=== PATIENT | female | born 1960 | race Caucasian/White ===

== ENCOUNTER 2016-10-03 18:43 | Inpatient (IN) | payer OTHER ==
[2016-10-03] MEDS ORDERED: Sodium Chloride 0.9% 1,000 ML IV ONE (19:44)
[2016-10-03 20:08] LABS: RBC URINE < 1 /hpf (0-3); URINE BILIRUBIN NEGATIVE (NEGATIVE); URINE BLOOD NEGATIVE (NEGATIVE); URINE COLOR Yellow (YELLOW); URINE GLUCOSE (UA) NORMAL (Normal); URINE KETONE NEGATIVE (NEGATIVE); URINE LEUKOCYTE ESTERASE NEG Leu/uL (Negative); URINE PROTEIN NEGATIVE (NEGATIVE); URINE UROBILINOGEN NORMAL mg/dL (0.2-1.0); WBC URINE 1 /hpf (0-5)
[2016-10-03 20:11] LABS: BASO % 0.3 % (0.0-2.0); EOS # 0.4 K/uL (0.0-0.7); EOS % 2.5 % (0.0-4.0); HEMATOCRIT 34.9 % (34.0-47.0); LYMPH # 2.4 K/uL (1.0-4.3); MEAN CORPUSCULAR HEMOGLOBIN 28.9 pg (27.0-31.0); MEAN CORPUSCULAR HGB CONC 32.4 g/dL (33.0-37.0); MONO # 1.3 K/uL (0.0-0.8); MONO % 8.4 % (0.0-10.0); RED CELL DISTRIBUTION WIDTH 13.8 % (11.5-14.5)
[2016-10-03] MEDS ORDERED: Morphine 4 MG/ML VIAL ONE ×2 (20:11→23:04)
[2016-10-03] MEDS ORDERED: Sodium Chloride 0.9% 1,000 ML ONE (20:11)
[2016-10-03 20:12] LABS: WHITE BLOOD COUNT 15.1 K/uL (4.8-10.8)
[2016-10-03] MEDS ORDERED: Iodixanol 320 MG/ML 100 ML BOTTLE IV ONE (20:17)
[2016-10-03 20:20] LABS: CHLORIDE 98 mmol/L (98-107); SODIUM 137 mmol/L (132-148)
[2016-10-03 20:22] LABS: ALB/GLOB RATIO 1.4 (1.0-2.1); AST/SGOT 34 U/L (14-36); BILIRUBIN,TOTAL 0.5 mg/dL (0.2-1.3); CARBON DIOXIDE 28 mmol/L (22-30); GFR AFRICAN-AMERICAN > 60; TOTAL PROTEIN 6.8 g/dL (6.3-8.3)
[2016-10-03 20:23] LABS: ALKALINE PHOSPHATASE 73 U/L (38-126); ALT/SGPT 34 U/L (9-52); BLOOD UREA NITROGEN 16 mg/dL (7-17); GLUCOSE,RANDOM 103 mg/dL (65-105)
--- NOTE | 2016-10-03 20:52 | C.PDOC ---
History Of Present Illness 56 year old female presents to the ED with complaints of sharp intermittent LLQ pain radiating to her lower back since yesterday. Patient states she has associated nausea and feels the symptoms are similar to a previous episode of diverticulitis (December 2015). Patient denies fever, vomiting/diarrhea, dysuria/ hematuria, chest pain, SOB. Time Seen by Provider: 10/03/16 19:08 Chief Complaint (Nursing): Abdominal Pain History Per: Patient History/Exam Limitations: no limitations Onset/Duration Of Symptoms: Days, Intermittent Episodes Current Symptoms Are (Timing): Still Present Severity: Mild Location Of Pain/Discomfort: LLQ Radiation Of Pain To:: Back Quality Of Discomfort: Sharp Associated Symptoms: Nausea. denies: Fever, Chills, Vomiting, Diarrhea, Chest Pain, Urinary Symptoms Abnormal Vaginal Bleeding: No Past Medical History Reviewed: Historical Data, Nursing Documentation, Vital Signs Vital Signs: Last Vital Signs Temp 98.9 F 10/05/16 07:48 Pulse 62 10/05/16 07:48 Resp 20 10/05/16 07:48 BP 125/78 10/05/16 07:48 Pulse Ox 96 10/05/16 07:48 - Medical History PMH: Diverticulitis Family History: States: No Known Family Hx - Social History Hx Alcohol Use: No Hx Substance Use: No - Immunization History Hx Influenza Vaccination: No Review Of Systems Except As Marked, All Systems Reviewed And Found Negative. Constitutional: Negative for: Fever, Chills Gastrointestinal: Positive for: Nausea, Abdominal Pain (+LLQ pain). Negative for: Vomiting, Diarrhea Genitourinary: Negative for: Dysuria, Hematuria Physical Exam - Physical Exam Appears: Well, Non-toxic, Other (in mild pain ) Skin: Normal Color, Warm, Dry, No Rash Head: Normacephalic Eye(s): bilateral: Normal Inspection Oral Mucosa: Moist Cardiovascular: Rhythm Regular Respiratory: Normal Breath Sounds, No Accessory Muscle Use, No Rales, No Rhonchi , No Wheezing Gastrointestinal/Abdominal: Bowel Sounds, Soft, Tenderness (+LLQ tenderness to palpation), No Distention, Guarding, No Rebound, No Other ((-) McBurney's, (-) Aquino's ) Back: No CVA Tenderness Extremity: Normal ROM, No Deformity Neurological/Psych: Oriented x3 ED Course And Treatment - Laboratory Results Result Diagrams: 10/05/16 07:15 10/05/16 07:15 O2 Sat by Pulse Oximetry: 96 (Room air) Pulse Ox Interpretation: Normal - CT Scan/US ct abd/pelvis Other Rad Studies (CT/US): Read By Radiologist, Radiology Report Reviewed CT/US Interpretation: Accession No. : [id number]. Patient Name / ID : DARWIN DAVILA / [id number]. Exam Date : 10/03/2016 21:47:11 ( Approved ). Study Comment : Sex / Age : F / 56Y. Creator : Dotty Mack MD. Dictator : White [employer]ros[employer] Proofer : Brick Carrier : Dotty Mack MD. Approver2 : Report Date : 10/03/2016 22:34:00. My Comment : . [facility] Division of Radiology. [address] [place] [address]. Tel. no. . . . Patient Name: LOLA GRANADOS . Pt. Address: [address] [place] [address] Rec #: [id number]. [place] [address]: Adenike Paulson DO Pt Order Location: [facility] : 1960 Female Age: 56 Order #: [id number]. Reason for exam: LLQ PAIN, R/O DIVERTICULITIS. . . . . . CT Scan. . . ABD PELVIS IV CONTRAST ONLY Exam Date: 10/03/16. . This imaging exam was performed at [facility], [place]. . . EXAM: CT Abdomen and Pelvis With Intravenous Contrast. . CLINICAL HISTORY: 56 years old, female; Pain; Abdominal pain; Flank; Left lower quadrant (llq);. Additional info: Llq pain, R/O diverticulitis. . TECHNIQUE: Axial computed tomography images of the abdomen and pelvis with intravenous. contrast. This CT exam was performed using one or more of the following dose. reduction techniques: automated exposure control, adjustment of the mA and/or. kV according to patient size, and/or use of iterative reconstruction technique. Coronal and sagittal reformatted images were created and reviewed. . CONTRAST: 100 mL of VISIPAQUE 320 administered intravenously. . EXAM DATE/ TIME: 10/03/2016 7:53 PM. . COMPARISON: Prior CT abdomen and pelvis of 2015. . FINDINGS: LIMITATIONS: Exam is somewhat limited by mild streak/ motion artifact. LOWER THORAX: No infiltrate seen in the lung bases. . ABDOMEN: LIVER: No acute abnormality of the liver identified. GALLBLADDER AND BILE DUCTS: No CT evidence of acute cholecystitis. No. evidence of significant biliary ductal dilatation. PANCREAS: No CT evidence of acute pancreatitis. SPLEEN: No acute abnormality of the spleen identified. ADRENALS : No acute abnormality of the adrenal glands identified. KIDNEYS AND URETERS: No acute abnormality of the kidneys identified. No. evidence of significant hydrouereteronephrosis. STOMACH AND BOWEL: Moderate focal fat stranding and infiltration, consistent. with inflammatory change, is seen in the fat adjacent to the distal descending. colon. Marked segmental wall thickening of the colon is also noted in this. same area. There is a small amount of nearby fluid in the left retroperitoneal. space. The inflammatory changes surround a colonic diverticulum. Findings. are most compatible with acute diverticulitis. No evidence of significant. focal fluid collection or abscess. No definite nearby extraluminal air seen to. suggest perforation. Extensive colonic diverticulosis is noted. Retained. stool noted throughout the colon. Focal wall thickening of the stomach is. seen, along the greater curvature. This may have been present on the prior CT. also. No evidence of gastric obstruction or diffuse gastric wall thickening. No evidence of large bowel obstruction. No evidence of small bowel. obstruction. No acute abnormality of the duodenum identified. APPENDIX: Appendix is seen, and is within normal limits in appearance. . PELVIS: BLADDER: No acute abnormality of the bladder identified. REPRODUCTIVE: No acute abnormality of the uterus identified. No evidence of. large adnexal masses. . ABDOMEN and PELVIS: INTRAPERITONEAL SPACE: No evidence of free air or significant free fluid. BONES /JOINTS: No acute fractures or other acute bony abnormality noted. SOFT TISSUES: No acute abnormality of the visualized soft tissues is seen. VASCULATURE: No evidence of abdominal aortic aneurysm. No evidence of. periaortic hemorrhage. LYMPH NODES: No evidence of diffuse lymphadenopathy. . IMPRESSION: - Findings compatible with acute diverticulitis of the distal descending colon. No evidence of abscess formation or perforation. - Focal wall thickening of the stomach, along the greater curvature. While. this could be secondary to focal gastritis, consider further non-emergent. workup to exclude neoplastic gastric wall thickening, in a patient of this age. - See above for remaining findings. . Dictated By: Dotty Mack MD. Dictated Date/Time: 10/03/162233. Signed By: Dotty Mack MD. Date Signed: 2233. Transcribed By: MEDREC. Transcribe Date/Time: 10/03/162233. RMMP02/ MT Progress Note: Blood work, Urinalysis, CT ABD & Pelvis w/contrast ordered and reviewed. Patient given IV NS bolus, IV Morphine, IV Zofran. CT scan shows acute diverticulitis without abscess/perf. IV Ciprofloxacin, IV flagyl ordered. Reevaluation Time: 22:35 Reassessment Condition: Improved (Patient continues to have significant pain and some gaurding on physical exam. Required multiple rounds of IV morphine. Will admit to hospital.) - Physician Consult Information Physician Contacted: Minh Steele Outcome Of Conversation: Discussed patient with PMD, he agrees with admission for acute diverticulitis. Wound like Dr. Haley for GI - consult entered. Critical Care Time - Critical Care Note Total Time (in mins): 40 Documented critical care: time excludes all time spent performing seperately billable procedures. Disposition - Disposition Disposition: HOSPITALIZED Disposition Time: 22:53 Condition: STABLE - Clinical Impression Clinical Impression: Acute diverticulitis - Scribe Statement The provider has reviewed the documentation as recorded by the Scribe Amanda Corona. Provider Attestation: All medical record entries made by the Scribe were at my direction and personally dictated by me. I have reviewed the chart and agree that the record accurately reflects my personal performance of the history, physical exam, medical decision making, and the department course for this patient. I have also personally directed, reviewed, and agree with the discharge instructions and disposition. Decision To Admit - Pt Status Changed To: Hospital Disposition Of: Inpatient - Admit Certification Admit to Inpatient:: After my assessment, the patient will require hospitalization for at least two midnights. This is because of the severity of symptoms shown, intensity of services needed, and/or the medical risk in this patient being treated as an outpatient. - InPatient: Physician Admission Certification:: see notes - . Bed Request Type: Regular Admitting Physician: Minh Steele Patient Diagnosis: Acute diverticulitis
--- NOTE | 2016-10-03 22:35 | CT ---
EXAM: CT Abdomen and Pelvis With Intravenous Contrast CLINICAL HISTORY: 56 years old, female; Pain; Abdominal pain; Flank; Left lower quadrant (llq); Additional info: Llq pain, R/O diverticulitis TECHNIQUE: Axial computed tomography images of the abdomen and pelvis with intravenous contrast. This CT exam was performed using one or more of the following dose reduction techniques: automated exposure control, adjustment of the mA and/or kV according to patient size, and/or use of iterative reconstruction technique. Coronal and sagittal reformatted images were created and reviewed. CONTRAST: 100 mL of VISIPAQUE 320 administered intravenously. EXAM DATE/TIME: 10/03/2016 7:53 PM COMPARISON: Prior CT abdomen and pelvis of 12/25/2015 FINDINGS: LIMITATIONS: Exam is somewhat limited by mild streak/motion artifact. LOWER THORAX: No infiltrate seen in the lung bases. ABDOMEN: LIVER: No acute abnormality of the liver identified. GALLBLADDER AND BILE DUCTS: No CT evidence of acute cholecystitis. No evidence of significant biliary ductal dilatation. PANCREAS: No CT evidence of acute pancreatitis. SPLEEN: No acute abnormality of the spleen identified. ADRENALS: No acute abnormality of the adrenal glands identified. KIDNEYS AND URETERS: No acute abnormality of the kidneys identified. No evidence of significant hydrouereteronephrosis. STOMACH AND BOWEL: Moderate focal fat stranding and infiltration, consistent with inflammatory change, is seen in the fat adjacent to the distal descending colon. Marked segmental wall thickening of the colon is also noted in this same area. There is a small amount of nearby fluid in the left retroperitoneal space. The inflammatory changes surround a colonic diverticulum. Findings are most compatible with acute diverticulitis. No evidence of significant focal fluid collection or abscess. No definite nearby extraluminal air seen to suggest perforation. Extensive colonic diverticulosis is noted. Retained stool noted throughout the colon. Focal wall thickening of the stomach is seen, along the greater curvature. This may have been present on the prior CT also. No evidence of gastric obstruction or diffuse gastric wall thickening. No evidence of large bowel obstruction. No evidence of small bowel obstruction. No acute abnormality of the duodenum identified. APPENDIX: Appendix is seen, and is within normal limits in appearance. PELVIS: BLADDER: No acute abnormality of the bladder identified. REPRODUCTIVE: No acute abnormality of the uterus identified. No evidence of large adnexal masses. ABDOMEN and PELVIS: INTRAPERITONEAL SPACE: No evidence of free air or significant free fluid. BONES/JOINTS: No acute fractures or other acute bony abnormality noted. SOFT TISSUES: No acute abnormality of the visualized soft tissues is seen. VASCULATURE: No evidence of abdominal aortic aneurysm. No evidence of periaortic hemorrhage. LYMPH NODES: No evidence of diffuse lymphadenopathy. IMPRESSION: - Findings compatible with acute diverticulitis of the distal descending colon. No evidence of abscess formation or perforation. - Focal wall thickening of the stomach, along the greater curvature. While this could be secondary to focal gastritis, consider further non-emergent workup to exclude neoplastic gastric wall thickening, in a patient of this age. - See above for remaining findings.
[2016-10-03] MEDS ORDERED: Ciprofloxacin 400mg/200ml D5W 200 ML IV STA (22:41)
[2016-10-03] MEDS ORDERED: metroNIDAZOLE IV 500 mg/100 ml 100 ML ONE (23:04)
[2016-10-03] MEDS ORDERED: Ciprofloxacin 400mg/200ml D5W 200 ML IVPB ONE (23:04)
[2016-10-03] MEDS: metroNIDAZOLE IV 500 mg/100 ml 100 ML IV SCH (23:16)
[2016-10-04] MEDS: Sodium Chloride 0.45% 1,000 ML IV SCH ×2 (05:50→22:47)
[2016-10-04 07:18] LABS: HEMATOCRIT 32.2 % (34.0-47.0); MEAN CELL VOLUME 88.9 fL (81.0-99.0); MEAN CORPUSCULAR HGB CONC 32.6 g/dL (33.0-37.0); MEAN PLATELET VOLUME 7.6 fL (7.2-11.7); WHITE BLOOD COUNT 14.2 K/uL (4.8-10.8)
[2016-10-04 07:26] LABS: CHLORIDE 99 mmol/L (98-107); SODIUM 136 mmol/L (132-148)
[2016-10-04 07:27] LABS: POTASSIUM 4.1 mmol/L (3.6-5.2)
[2016-10-04 07:29] LABS: ALB/GLOB RATIO 1.3 (1.0-2.1); ALKALINE PHOSPHATASE 72 U/L (38-126); AST/SGOT 23 U/L (14-36); BILIRUBIN,TOTAL 0.9 mg/dL (0.2-1.3); BLOOD UREA NITROGEN 13 mg/dL (7-17); CARBON DIOXIDE 25 mmol/L (22-30); GFR AFRICAN-AMERICAN > 60; GLUCOSE,RANDOM 102 mg/dL (65-105); TOTAL PROTEIN 6.2 g/dL (6.3-8.3)
[2016-10-04 07:30] LABS: ALT/SGPT 29 U/L (9-52); CALCIUM 7.9 mg/dl (8.6-10.4)
--- NOTE | 2016-10-04 07:57 | HP ---
I was called to the Emergency Room last night where she came in with left lower quadrant pain. It wa s very sharp. It came on suddenly and she was not feeling well, also some nauseousness. No vomiting , no diarrhea, no blood, no shortness of breath, no chest pain. She has a history of diverticulitis in the past, but she has left lower quadrant pain. REVIEW OF SYSTEMS: No headaches, no dizziness, no blurred vision, no hearing or vision changes, no s ore throat, no neck pain. No chest pain or palpitations. No shortness of breath, no coughing, no mu cus. There is abdominal pain with nauseousness, left lower quadrant. It is sharp, came on suddenly. It comes and goes. Extremities have no problems. She can walk, move all extremities fine. There is left lower quadrant pain. FAMILY HISTORY: There is hypertension in the family. ALLERGIES: She has no known drug allergies. SOCIAL HISTORY: No smoking, occasional alcohol, no drugs. PHYSICAL EXAMINATION: VITAL SIGNS: She has a 98.2 temp, 79 pulse, 18 respiratory rate, 134/78 blood pressure, 96% O2 sat o n room air. HEENT: Head is atraumatic, normocephalic. Extraocular muscles are intact. Pupils equal, reactive t o light. Throat is moist. NECK: Supple. HEART: Regular rate. LUNGS: Have decreased breath sounds, but clear to auscultation. No wheezes, rhonchi or rales. ABDOMEN: Tender left lower quadrant, questionable discomfort. No guarding, no rebound, no CVA tende rness. EXTREMITIES: No edema. She can move all 4 extremities. NEUROLOGIC: Alert and oriented x 3. Normal speech. Normal concentration. LYMPHATICS: Midline thyroid, nonpalpable appreciative lymphadenopathy. LABORATORY TESTS: Urine is clear, is negative. She has a 137 sodium, potassium is 4, BUN 16, creatinine 1.1, GFR is 52, sugar is 103, calcium is 8, total bili is 0.5, AST is 34, ALT is 34, a lk phos 73, total protein 6.8, albumin is 3.9, lipase is 64. White count is elevated at 15.9, hemogl obin 11.3, hematocrit 34.9, platelets are 264. REPORTS: She had a CAT scan of the abdomen and pelvis in the Emergency Room and it showed findings c ompatible with acute diverticulitis of the distal descending colon. No abscess. There is focal wall thickening of her stomach along the greater curvature. It could represent focal gastritis. Conside r further emergent workup, possible neoplasm. I called in gastroenterology, Dr. Haley. I put her on IV fluids, IV Cipro, IV Flagyl. I am going to check her labs this morning. She is n.p.o. She is on morphine for the pain. We will see what GI h as to say. She is here for acute diverticulitis, severe abdominal pain. Hopefully, she will do very well. Minh Steele DO cc: [id number] TT: 10/04/2016 07:57:08 en
--- NOTE | 2016-10-04 08:45 | CP.PCM.CON ---
<Pavel Garcia - Last Filed: 10/04/16 08:50> History of Present Illness - History of Present Illness History of Present Illness: PGY4 GI Fellow Consult Note Patient is a 56yo female with PMHx significant for two episodes of acute diverticulitis who presented to the ED with 3 days of abdominal pain. Pain began suddenly on Monday night in the LLQ and was initially pinching in nature. In the following days pain progressively became more and more severe prompting her to come to the ED for further evaluation. She did not take any medications at home to relieve her symptoms and states movement and eating seemed to make symptoms worse. Admits to two episodes of acute diverticulitis previously in January of 2015 and 2015 and admitted that this felt very similar. She denied any fever, chills but had developed nausea and vomiting. She has suffered with constipation for most of her adult life and has not passed stool in 3-4 days. Admits to passing flatus. Denies any sick contacts, recent antibiotic use or travel. PMHx: See HPI PSHx: Denies FHx: Mother - CAD Social: Former smoker - 2ppd, quit ~10 years ago; denies EtOH or illicit drug use Endo: No prior endoscopic evaluation Review of Systems - Constitutional Constitutional: absent: Anorexia, Chills, Malaise - EENT Eyes: absent: Change in Vision Nose/Mouth/Throat: absent: Sore Throat - Cardiovascular Cardiovascular: absent: Chest Pain, Dyspnea, Edema - Respiratory Respiratory: absent: Cough, Dyspnea, Excessive Mucous Production - Gastrointestinal Gastrointestinal: Abdominal Pain, Constipation, Cramping, Nausea, Vomiting. absent: Diarrhea, Dyspepsia, Dysphagia, Hematemesis, Hematochezia, Loose Stools , Melena - Genitourinary Genitourinary: absent: Dysuria, Urinary Frequency, Urinary Urgency - Musculoskeletal Musculoskeletal: absent: Back Pain, Neck Pain - Integumentary Integumentary: absent: New Lesions, Rash - Neurological Neurological: absent: Dizziness, Numbness, Focal Weakness - Psychiatric Psychiatric: absent: Anxiety, Depression - Endocrine Endocrine: absent: Polydipsia, Polyphagia, Polyuria - Hematologic/Lymphatic Hematologic: absent: Easy Bleeding, Easy Bruising, Lymphadenopathy Past Patient History - Past Medical History & Family History Past Medical History?: Yes - Past Social History Smoking Status: Former Smoker - CARDIAC Hx Cardiac Disorders: No - PULMONARY Hx Respiratory Disorders: No - NEUROLOGICAL Hx Neurological Disorder: No - HEENT Hx HEENT Problems: No Other/Comment: USES GLASSES - RENAL Hx Chronic Kidney Disease: No - ENDOCRINE/METABOLIC Hx Endocrine Disorders: No - HEMATOLOGICAL/ONCOLOGICAL Hx Blood Disorders: No - INTEGUMENTARY Hx Dermatological Problems: No - MUSCULOSKELETAL/RHEUMATOLOGICAL Hx Falls: No - GASTROINTESTINAL Hx Gastrointestinal Disorders: Yes Hx Diverticulitis: Yes - GENITOURINARY/GYNECOLOGICAL Hx Genitourinary Disorders: No - PSYCHIATRIC Hx Substance Use: No - SURGICAL HISTORY Hx Surgeries: Yes Hx Section: Yes - ANESTHESIA Hx Anesthesia: Yes Hx Anesthesia Reactions: No Hx Malignant Hyperthermia: No Has any member of the family had a problem w/ anesthesia?: No Meds Allergies/Adverse Reactions: Allergies Allergy/AdvReac Type Severity Reaction Status Date / Time No Known Allergies Allergy Verified 10/03/16 18:46 - Medications Medications: Current Medications Metronidazole (Flagyl) 100 mls @ 100 mls/hr IV STAT [facility] Last Admin: 10/03/16 23:16 Dose: 100 mls/hr Sodium Chloride (Sodium Chloride 0.45%) 1,000 mls @ 60 mls/hr IV .[id number] [facility] Last Admin: 10/04/16 05:50 Dose: 60 mls/hr Ciprofloxacin (Cipro 400mg/200ml Dsw) 200 mls @ 133 mls/hr IVPB Q12H [facility] Influenza Virus Vaccine (Afluria) 45 mcg IM .ONCE ONE Stop: 10/06/16 10:01 Morphine Sulfate (Morphine) 4 mg IVP Q4 PRN PRN Reason: Pain Ondansetron HCl (Zofran Inj) 4 mg IVP Q4 PRN PRN Reason: Nausea/Vomiting Pneumococcal Polyvalent Vaccine (Pneumovax 23 Vaccine) 0.5 ml IM .ONCE ONE Stop: 10/06/16 10:01 Physical Exam - Constitutional Appears: Non-toxic, No Acute Distress - Eye Exam Eye Exam: EOMI, PERRL - ENT Exam ENT Exam: Mucous Membranes Moist - Respiratory Exam Respiratory Exam: Clear to Auscultation Bilateral. absent: Rales, Rhonchi, Wheezes - Cardiovascular Exam Cardiovascular Exam: RRR, +S1, +S2 - GI/Abdominal Exam GI & Abdominal Exam: Normal Bowel Sounds, Soft. absent: Distended, Firm, Guarding, Organomegaly, Rigid, Tenderness - Extremities Exam Extremities exam: Positive for: normal inspection. Negative for: pedal edema - Neurological Exam Neurological exam: Alert, Oriented x3 - Psychiatric Exam Psychiatric exam: Normal Affect, Normal Mood - Skin Skin Exam: Dry, Warm Results - Vital Signs Recent Vital Signs: Last Vital Signs Temp 98.5 F 10/04/16 01:00 Pulse 70 10/04/16 01:00 Resp 18 10/04/16 01:18 BP 112/70 10/04/16 01:00 Pulse Ox 96 10/04/16 01:18 - Labs Result Diagrams: 10/04/16 06:47 10/04/16 06:47 Labs: Laboratory Results - last 24 hr 10/04/16 06:47 WBC 14.2 H RBC 3.63 L Hgb 10.5 L Hct 32.2 L MCV 88.9 MCH 29.0 MCHC 32.6 L RDW 14.0 Plt Count 230 MPV 7.6 Sodium 136 Potassium 4.1 Chloride 99 Carbon Dioxide 25 Anion Gap 16 BUN 13 Creatinine 0.8 Est GFR ( Amer) > 60 Est GFR (Non-Af Amer) > 60 Random Glucose 102 Calcium 7.9 L Total Bilirubin 0.9 AST 23 ALT 29 Alkaline Phosphatase 72 Total Protein 6.2 L Albumin 3.5 Globulin 2.7 Albumin/Globulin Ratio 1.3 Assessment & Plan - Assessment and Plan (Free Text) Assessment: Patient is a 56yo female with PMHx significant for two episodes of acute diverticulitis who presented to the ED with 3 days of abdominal pain. -Acute diverticulitis, third recurrence -Former tobacco abuse, since quit Plan: -Patient will benefit from 7-10 day course of antibiotics, continue with Cipro/ Flagyl -Start liquid diet, advance as tolerated -Analgesia/antiemetics per primary service -Encouraged to increase fiber/water intake -Avoid constipation - recommend Miralax 17g PO QD on discharge if needed -Would benefit from colonoscopy 6-8 weeks following resolution of symptoms - Date & Time Date: 10/04/16 Time: 06:50 <Ray Haley - Last Filed: 10/04/16 09:02> Meds - Medications Medications: Current Medications Metronidazole (Flagyl) 100 mls @ 100 mls/hr IV STAT [facility] Last Admin: 10/03/16 23:16 Dose: 100 mls/hr Sodium Chloride (Sodium Chloride 0.45%) 1,000 mls @ 60 mls/hr IV .[id number] [facility] Last Admin: 10/04/16 05:50 Dose: 60 mls/hr Ciprofloxacin (Cipro 400mg/200ml Dsw) 200 mls @ 133 mls/hr IVPB Q12H [facility] Influenza Virus Vaccine (Afluria) 45 mcg IM .ONCE ONE Stop: 10/06/16 10:01 Morphine Sulfate (Morphine) 4 mg IVP Q4 PRN PRN Reason: Pain Ondansetron HCl (Zofran Inj) 4 mg IVP Q4 PRN PRN Reason: Nausea/Vomiting Pneumococcal Polyvalent Vaccine (Pneumovax 23 Vaccine) 0.5 ml IM .ONCE ONE Stop: 10/06/16 10:01 Results - Vital Signs Recent Vital Signs: Last Vital Signs Temp 98.5 F 10/04/16 01:00 Pulse 70 10/04/16 01:00 Resp 18 10/04/16 01:18 BP 112/70 10/04/16 01:00 Pulse Ox 96 10/04/16 01:18 - Labs Result Diagrams: 10/04/16 06:47 10/04/16 06:47 Labs: Laboratory Results - last 24 hr 10/04/16 06:47 WBC 14.2 H RBC 3.63 L Hgb 10.5 L Hct 32.2 L MCV 88.9 MCH 29.0 MCHC 32.6 L RDW 14.0 Plt Count 230 MPV 7.6 Sodium 136 Potassium 4.1 Chloride 99 Carbon Dioxide 25 Anion Gap 16 BUN 13 Creatinine 0.8 Est GFR ( Amer) > 60 Est GFR (Non-Af Amer) > 60 Random Glucose 102 Calcium 7.9 L Total Bilirubin 0.9 AST 23 ALT 29 Alkaline Phosphatase 72 Total Protein 6.2 L Albumin 3.5 Globulin 2.7 Albumin/Globulin Ratio 1.3 Attending/Attestation - Attestation I have personally seen and examined this patient.: Yes I have fully participated in the care of the patient.: Yes I have reviewed all pertinent clinical information: Yes Notes (Text): 10/04/16 08:55 I have seen and examined patient with GI fellow. Agree with above documentation with the following additions. In brief, this is a 56 year old female with prior history of diverticulitis who presents to hospital with complaint of progressive abdominal pain over the past 3 days. Prior to this she was in usual state of health. She describes a LLQ "pinching" pain, 6/10 intensity which was non-radiating and worse following meal consumption. She also reports associated nausea and non-bloody emesis but denies fever/chills, weight loss, rectal bleeding, or diarrhea. She had two similar prior episodes in January 2016 and in 2014. No prior endoscopic evaluation. Abdominal pain - acute diverticulitis CT imaging reviewed by me showing descending colon diverticulitis without associated abscess or free air - Continue with antibiotic therapy - Clear liquid diet as tolerated - Pain control - Bowel regimen to prevent constipation - Patient would benefit from outpatient colonoscopy 6-8 weeks following resolution of acute symptoms. Office contact information provided to patient.
[2016-10-04 09:09] VITALS: RESP 20
[2016-10-04] MEDS: Ciprofloxacin 400mg/200ml D5W 200 ML IVPB SCH ×2 (09:47→21:26)
[2016-10-04] MEDS ORDERED: Ciprofloxacin 400mg/200ml D5W 200 ML IVPB SCH (11:30)
[2016-10-04] MEDS ORDERED: Morphine 4 MG/ML VIAL IVP PRN (18:18)
[2016-10-04] MEDS: metroNIDAZOLE IV 500 mg/100 ml 100 ML IV SCH (21:23)
[2016-10-05 00:06] VITALS: TEMP 98.9; O2SAT 96
[2016-10-05] MEDS: Sodium Chloride 0.45% 1,000 ML IV SCH (06:08)
[2016-10-05 07:35] LABS: HEMATOCRIT 34.3 % (34.0-47.0); MEAN CELL VOLUME 89.2 fL (81.0-99.0); MEAN CORPUSCULAR HEMOGLOBIN 29.1 pg (27.0-31.0); MEAN CORPUSCULAR HGB CONC 32.7 g/dL (33.0-37.0); MEAN PLATELET VOLUME 7.6 fL (7.2-11.7); RED CELL DISTRIBUTION WIDTH 14.2 % (11.5-14.5)
[2016-10-05 07:46] LABS: CHLORIDE 99 mmol/L (98-107)
[2016-10-05 07:47] LABS: POTASSIUM 4.2 mmol/L (3.6-5.2); SODIUM 138 mmol/L (132-148)
[2016-10-05 07:49] LABS: ALB/GLOB RATIO 1.3 (1.0-2.1); ALKALINE PHOSPHATASE 75 U/L (38-126); AST/SGOT 22 U/L (14-36); BILIRUBIN,TOTAL 0.9 mg/dL (0.2-1.3); CARBON DIOXIDE 26 mmol/L (22-30); GFR AFRICAN-AMERICAN > 60; TOTAL PROTEIN 6.6 g/dL (6.3-8.3)
[2016-10-05 07:50] VITALS: BP 125/78; PULSE 62
[2016-10-05 07:50] LABS: ALT/SGPT 28 U/L (9-52); BLOOD UREA NITROGEN 6 mg/dL (7-17); CALCIUM 8.5 mg/dl (8.6-10.4); GLUCOSE,RANDOM 95 mg/dL (65-105)
[2016-10-05] MEDS: Ciprofloxacin 400mg/200ml D5W 200 ML IVPB SCH (09:07)
--- NOTE | 2016-10-05 09:08 | CP.PCM.PN ---
<Pavel Garcia - Last Filed: 10/05/16 09:05> Subjective - Date & Time of Evaluation Date of Evaluation: 10/05/16 Time of Evaluation: 06:10 - Subjective Subjective: PGY4 GI Fellow Progress Note Patient seen and examined bedside this morning. The patient admits to feeling better and is eager to return home. That said, she continues to have significant left sided abdominal pain which worsens with movement. She even required assistance to sit up from laying position due to pain when using abdominal musculature. No nausea, vomiting. Passed stool yesterday. 12 system ROS performed and negative except where stated. Objective - Vital Signs/Intake and Output Vital Signs (last 24 hours): Temp Pulse Resp BP Pulse Ox 98.9 F 62 20 125/78 96 10/05/16 07:48 10/05/16 07:48 10/05/16 07:48 10/05/16 07:48 10/05/16 07:48 Intake and Output: 10/05/16 10/05/16 06:59 18:59 Intake Total 1620 Balance 1620 - Medications Medications: Current Medications Metronidazole (Flagyl) 100 mls @ 100 mls/hr IV STAT [facility] Last Admin: 10/03/16 23:16 Dose: 100 mls/hr Sodium Chloride (Sodium Chloride 0.45%) 1,000 mls @ 60 mls/hr IV .[id number] [facility] Last Admin: 10/05/16 06:08 Dose: 60 mls/hr Ciprofloxacin (Cipro 400mg/200ml Dsw) 200 mls @ 133 mls/hr IVPB Q12H [facility] Last Admin: 10/04/16 21:26 Dose: 133 mls/hr Influenza Virus Vaccine (Afluria) 45 mcg IM .ONCE ONE Stop: 10/06/16 10:01 Morphine Sulfate (Morphine) 4 mg IVP Q4 PRN PRN Reason: Pain Ondansetron HCl (Zofran Inj) 4 mg IVP Q4 PRN PRN Reason: Nausea/Vomiting Pneumococcal Polyvalent Vaccine (Pneumovax 23 Vaccine) 0.5 ml IM .ONCE ONE Stop: 10/06/16 10:01 - Labs Labs: 10/05/16 07:15 10/05/16 07:15 - Constitutional Appears: Non-toxic, No Acute Distress - Eye Exam Eye Exam: EOMI, PERRL - ENT Exam ENT Exam: Mucous Membranes Moist - Respiratory Exam Respiratory Exam: Clear to Ausculation Bilateral. absent: Rales, Rhonchi, Wheezes - Cardiovascular Exam Cardiovascular Exam: RRR, +S1, +S2 - GI/Abdominal Exam GI & Abdominal Exam: Soft, Tenderness (left sided pain), Normal Bowel Sounds. absent: Distended, Firm, Guarding, Rigid - Extremities Exam Extremities Exam: Normal Inspection. absent: Pedal Edema - Neurological Exam Neurological Exam: Alert, Awake, Oriented x3 - Psychiatric Exam Psychiatric exam: Normal Affect, Normal Mood - Skin Skin Exam: Dry, Warm Assessment and Plan - Assessment and Plan (Free Text) Assessment: Patient is a 56yo female with PMHx significant for two episodes of acute diverticulitis who presented to the ED with 3 days of abdominal pain. -Acute diverticulitis, third recurrence -Former tobacco abuse, since quit Plan: -Continue on IV Cipro/Flagyl; will benefit from 7-10 day course of antibiotics and can be switched to PO on D/C -Advance diet to full liquids -Analgesia/antiemetics per primary service -Encouraged to increase fiber/water intake -Avoid constipation - recommend Miralax 17g PO QD on discharge if needed -Would benefit from colonoscopy 6-8 weeks following resolution of symptoms <Lorelei Rivero - Last Filed: 10/05/16 09:58> Objective - Vital Signs/Intake and Output Vital Signs (last 24 hours): Temp Pulse Resp BP Pulse Ox 98.9 F 62 20 125/78 96 10/05/16 07:48 10/05/16 07:48 10/05/16 07:48 10/05/16 07:48 10/05/16 07:48 Intake and Output: 10/05/16 10/05/16 06:59 18:59 Intake Total 1620 Balance 1620 - Medications Medications: Current Medications Metronidazole (Flagyl) 100 mls @ 100 mls/hr IV STAT [facility] Last Admin: 10/03/16 23:16 Dose: 100 mls/hr Sodium Chloride (Sodium Chloride 0.45%) 1,000 mls @ 60 mls/hr IV .[id number] [facility] Last Admin: 10/05/16 06:08 Dose: 60 mls/hr Ciprofloxacin (Cipro 400mg/200ml Dsw) 200 mls @ 133 mls/hr IVPB Q12H [facility] Last Admin: 10/05/16 09:07 Dose: 133 mls/hr Influenza Virus Vaccine (Afluria) 45 mcg IM .ONCE ONE Stop: 10/06/16 10:01 Morphine Sulfate (Morphine) 4 mg IVP Q4 PRN PRN Reason: Pain Ondansetron HCl (Zofran Inj) 4 mg IVP Q4 PRN PRN Reason: Nausea/Vomiting Pneumococcal Polyvalent Vaccine (Pneumovax 23 Vaccine) 0.5 ml IM .ONCE ONE Stop: 10/06/16 10:01 - Labs Labs: 10/05/16 07:15 10/05/16 07:15 Attending/Attestation - Attestation I have personally seen and examined this patient.: Yes I have fully participated in the care of the patient.: Yes I have reviewed all pertinent clinical information, including history, physical exam and plan: Yes Notes (Text): Patient seen and examined with GI fellow. Agree with his note as documented above with the following additions/exceptions. This is a 56 year old female with prior h/o diverticulitis who is admitted with acute uncomplicated descending diverticulitis. She states that she feels overall improved today, although slab off mill tender on examination. She is tolerating liquid diet. She had non bloody BM yesterday. Would continue supportive care, IV antibiotic therapy and pain medication as needed. She will need colonoscopy in 6-8 weeks after resolution of acute diverticulitis. 10/05/16 09:55
--- NOTE | 2016-10-05 14:02 | CP.PCM.PN ---
Subjective - Date & Time of Evaluation Date of Evaluation: 10/05/16 Time of Evaluation: 14:02 - Subjective Subjective: Alert, awake, NAD. Objective - Vital Signs/Intake and Output Vital Signs (last 24 hours): Temp Pulse Resp BP Pulse Ox 98.9 F 62 20 125/78 96 10/05/16 07:48 10/05/16 07:48 10/05/16 07:48 10/05/16 07:48 10/05/16 07:48 Intake and Output: 10/05/16 10/05/16 06:59 18:59 Intake Total 1620 Balance 1620 - Medications Medications: Current Medications Metronidazole (Flagyl) 100 mls @ 100 mls/hr IV STAT [facility] Last Admin: 10/03/16 23:16 Dose: 100 mls/hr Sodium Chloride (Sodium Chloride 0.45%) 1,000 mls @ 60 mls/hr IV .[id number] [facility] Last Admin: 10/05/16 06:08 Dose: 60 mls/hr Ciprofloxacin (Cipro 400mg/200ml Dsw) 200 mls @ 133 mls/hr IVPB Q12H [facility] Last Admin: 10/05/16 09:07 Dose: 133 mls/hr Influenza Virus Vaccine (Afluria) 45 mcg IM .ONCE ONE Stop: 10/06/16 10:01 Morphine Sulfate (Morphine) 4 mg IVP Q4 PRN PRN Reason: Pain Ondansetron HCl (Zofran Inj) 4 mg IVP Q4 PRN PRN Reason: Nausea/Vomiting Pneumococcal Polyvalent Vaccine (Pneumovax 23 Vaccine) 0.5 ml IM .ONCE ONE Stop: 10/06/16 10:01 - Labs Labs: 10/05/16 07:15 10/05/16 07:15 Assessment and Plan - Assessment and Plan (Free Text) Assessment: Patient tolerating regular diet, no complaints of pain. Cleared by GI, discharged home as per DR Steele with cipro 500 mg po bid x 7 days. To follow up in the office in 1 week.
[2016-10-05] MEDS ORDERED: Pneumococcal 23-Valent Vaccine IM ONE (14:30)
[2016-10-05] MEDS ORDERED: Influenza Virus Vaccine 45 mcg/0.5 ml Syr IM ONE (14:30)
--- NOTE | 2016-10-06 07:43 | PN ---
DATE: 10/05/2016 I saw the patient resting in bed. She slept fairly well. Still having left lower quadrant pain, alt bart it is somewhat better. Still when she just moves in bed she feels it. No real bowel movements yet. I believe she is on a clear liquid diet and tolerating it. No nausea or vomiting. PHYSICAL EXAMINATION: VITAL SIGNS: 98.9 temp, 69 pulse, 117/72 blood pressure, 20 respiratory rate, 92% O2 sat on room air . HEAD: Atraumatic, normocephalic. Throat is moist. NECK: Supple. HEART: Regular rate. LUNGS: Clear to auscultation. ABDOMEN: Left lower quadrant is cone tender to palpation. No guarding or discomfort but when she m oves in bed, it does hurt her down there. EXTREMITIES: No edema. LABORATORY DATA: Right now, 136 sodium, potassium 4.1, BUN 13, creatinine 0.8, GFR is greater than 6 0, sugar is 102, calcium 7.9. AST is 23, ALT is 39, total protein is 6.2. White count is still elev ated at 14.2 (it did come down from 15.1), hemoglobin 10.5, hematocrit 32.2, platelets of 230. She is currently on Cipro IV, Flagyl IV, morphine p.r.n. for pain, IV fluids and Zofran for nauseousn ess. She is being seen by GI; they want a clear liquid diet. I do not think I would increase it at this time till the pain goes away, maybe 1 more day. Also I saw the white count dropped from 14,000 to under 10. Will see what GI has to say. She is still mildly acutely ill, a 14,000 white count, le ft lower quadrant pain when she moves in bed gently and only on clears. Will keep a close eye on her. Maybe tomorrow; will see if she improves. She is here for acute diverticula. Minh Steele DO cc: [id number] TT: 10/05/2016 08:31:05 Confirmation # [id number] Dictation # [id number] 10/06/2016 06:42:33
== END 2016-10-05 15:15 | disposition home or self-care (01) | DRG 392 ==
LOC: C.ER 18:43 → C.9E 22:53 → C.3T 23:57
PROVIDERS: ADMIT Family Medicine; ATTEND Family Medicine
DX: K57.32 Diverticulitis of large intestine without perforation or abscess without bleeding (principal); Z87.891 Personal history of nicotine dependence

== ENCOUNTER 2017-10-16 20:08 | Emergency (ER) | payer OTHER ==
[2017-10-16 20:28] VITALS: BP 130/80; RESP 20
--- NOTE | 2017-10-16 21:32 | C.PDOC ---
History Of Present Illness The patient presents to the ED for evaluation of cough which began 1 week ago. Patient states symptoms are associated with painful lump to left side of her neck. She also reports associated fever today. Patient denies vomiting, diarrhea , chest pain, shortness of breath, and recent travel. (Maricarmen Seth) History Per: Patient History/Exam Limitations: no limitations Onset/Duration Of Symptoms: Other (1 week ) Current Symptoms Are (Timing): Still Present Associated Symptoms: Fever, Cough. denies: Vomiting, Diarrhea Additional History Per: Patient Time Seen by Provider: 10/16/17 20:41 Chief Complaint (Nursing): Flu-like Symptoms Past Medical History Reviewed: Historical Data, Nursing Documentation, Vital Signs - Medical History PMH: Diverticulitis Denies: Chronic Kidney Disease Surgical History: No Surg Hx Family History: States: Unknown Family Hx - Social History Hx Alcohol Use: No Hx Substance Use: No - Immunization History Hx Tetanus Toxoid Vaccination: No Hx Influenza Vaccination: No Hx Pneumococcal Vaccination: No Vital Signs: Last Vital Signs Temp 98.8 F 10/16/17 22:03 Pulse 78 10/16/17 22:03 Resp 20 10/16/17 22:03 BP 130/80 10/16/17 20:24 Pulse Ox 98 10/16/17 22:39 Review Of Systems Constitutional: Positive for: Fever Cardiovascular: Negative for: Chest Pain Respiratory: Positive for: Cough. Negative for: Shortness of Breath Gastrointestinal: Negative for: Vomiting, Diarrhea Physical Exam - Physical Exam Appears: Non-toxic, No Acute Distress Skin: Normal Color, Warm, Dry, No Rash Head: Atraumatic, Normacephalic Eye(s): bilateral: Normal Inspection, PERRL, EOMI Ear(s): Bilateral: Normal Nose: Normal, No Discharge Oral Mucosa: Moist Throat: Normal, No Erythema, No Exudate Neck: Normal ROM, No Midline Cervical Tenderness, No Paracervical Tenderness, Supple, Other (lymph node to left side of chest ) Chest: Symmetrical, No Deformity, No Tenderness Cardiovascular: Rhythm Regular, No Friction Rub, No Murmur Respiratory: No Decreased Breath Sounds, No Accessory Muscle Use, No Rales, Rhonchi (left>right), No Stridor, No Wheezing Gastrointestinal/Abdominal: Bowel Sounds (active), Soft, No Tenderness, No Guarding, No Rebound Back: Normal Inspection, No CVA Tenderness Extremity: Normal ROM, Capillary Refill (less than 2 seconds ) Neurological/Psych: Oriented x3, Normal Speech, Normal Cognition, Normal Motor Gait: Steady ED Course And Treatment O2 Sat by Pulse Oximetry: 98 (on RA) Pulse Ox Interpretation: Normal - Radiology CXR: Interpreted by Me (questionable interstitial infiltrate ), Viewed By Me CXR Interpretation: Yes: Infiltrates (interstitial infiltrate) Medical Decision Making Medical Decision Making: Progress: CXR ordered and reviewed. Motrin PO, Augmentin PO and Tessalone Perles PO administered. (Maricarmen Seth ) Disposition - Disposition Disposition Time: 21:53 - Disposition Referrals: Minh Steele DO [Staff Provider] - Disposition: HOME/ ROUTINE Condition: GOOD Additional Instructions: Follow up with the PMD within 1-2 days ago. 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 - Scribe Statement The provider has reviewed the documentation as recorded by the Scribe (Laura Jones) - Scribe Statement All medical record entries made by the Scribe were at my direction and personally dictated by me. I have reviewed the chart and agree that the record accurately reflects my personal performance of the history, physical exam, medical decision making, and the department course for this patient. I have also personally directed, reviewed, and agree with the discharge instructions and disposition. (Maricarmen Seth)
[2017-10-16] MEDS ORDERED: Amoxicillin-Clav 875-125 mg Tab PO STA (21:33)
[2017-10-16] MEDS ORDERED: Amoxicillin-Clav 875-125 mg Tab PO ONE (21:40)
[2017-10-16 22:03] VITALS: PULSE 78; TEMP 98.8; O2SAT 98
--- NOTE | 2017-10-17 07:59 | RAD ---
HISTORY: rhonchi, L > R COMPARISON: None TECHNIQUE: Chest PA and lateral FINDINGS: LUNGS: Mild increased interstitial markings bilaterally. PLEURA: No pleural effusion is identified. CARDIOVASCULAR: Heart size is within normal limits. OSSEOUS STRUCTURES: Visualized osseous structures are unremarkable. VISUALIZED UPPER ABDOMEN: Unremarkable. OTHER FINDINGS: None. IMPRESSION: Mild increased interstitial markings bilaterally.
== END 2017-10-16 22:15 | disposition home or self-care (01) ==
LOC: C.ER 20:08
DX: J18.9 Pneumonia, unspecified organism (principal)

== ENCOUNTER 2017-11-23 19:21 | Emergency (ER) | payer OTHER ==
--- NOTE | 2017-11-23 20:59 | C.PDOC ---
History Of Present Illness 57-year-old female, presents to the emergency department with complaints of cough and congestion over the past 1 week. Pt states she was seen here and given medication over one month ago and got better. States initially symptoms improved, but over the past few days, symptoms have returned and worsened, prompting visit. Patient denies diarrhea, rash, chest pain, SOB, nausea/vomiting , sick contacts recent travel, or any other associated symptoms. No other complaints. Time Seen by Provider: 11/23/17 20:29 Chief Complaint (Nursing): Flu-like Symptoms History Per: Patient History/Exam Limitations: no limitations Past Medical History Reviewed: Historical Data, Nursing Documentation, Vital Signs Vital Signs: Last Vital Signs Temp 100.2 F H 11/23/17 20:04 Pulse 82 11/23/17 20:04 Resp 20 11/23/17 20:04 BP 117/78 11/23/17 20:04 Pulse Ox 97 11/23/17 22:10 - Medical History PMH: Diverticulitis Family History: States: No Known Family Hx - Social History Hx Alcohol Use: No Hx Substance Use: No - Immunization History Hx Tetanus Toxoid Vaccination: No Hx Influenza Vaccination: No Hx Pneumococcal Vaccination: No Review Of Systems Except As Marked, All Systems Reviewed And Found Negative. Constitutional: Negative for: Fever, Chills ENT: Positive for: Nose Congestion Cardiovascular: Negative for: Chest Pain Respiratory: Positive for: Cough. Negative for: Shortness of Breath, Sputum Gastrointestinal: Negative for: Vomiting Physical Exam - Physical Exam Appears: Non-toxic, No Acute Distress Skin: Normal Color, Warm, Dry, No Rash Head: Atraumatic, Normacephalic Eye(s): bilateral: Normal Inspection, PERRL Nose: Normal Oral Mucosa: Moist Lips: Normal Appearing Neck: Normal ROM, Supple Chest: Symmetrical Cardiovascular: Rhythm Regular, No Murmur Respiratory: No Decreased Breath Sounds, No Accessory Muscle Use, Rales (B/L ), No Rhonchi, No Stridor, No Wheezing Back: Normal Inspection, No CVA Tenderness Extremity: Normal ROM, No Deformity, No Swelling Neurological/Psych: Oriented x3, Normal Speech, Normal Motor Gait: Steady ED Course And Treatment O2 Sat by Pulse Oximetry: 97 (RA) Pulse Ox Interpretation: Normal - Radiology CXR: Interpreted by Me CXR Interpretation: Yes: No Acute Disease. No: Infiltrates Medical Decision Making Medical Decision Making: On re-exam, the patient reports improvement of symptoms. Lungs are CTA, heart is RRR, abdomen is soft, non-tender and tolerating PO well. Ambulatory in the ED with steady gait. Follow up with the medical doctor/clinic within 1-2 days. Return if worsened. Disposition - Disposition Referrals: Minh Steele DO [Primary Care Provider] - Disposition: HOME/ ROUTINE Disposition Time: 22:06 Condition: STABLE Additional Instructions: Follow up with the medical doctor/clinic within 1-2 days. Return if worsened. Prescriptions: Albuterol HFA [Ventolin HFA 90 mcg/actuation (8 g)] 1 puff IH Q6 #100 puff Azithromycin [Zithromax] 250 mg PO DAILY #6 tab predniSONE [Prednisone] 20 mg PO BID #10 tab Instructions: Acute Bronchitis Forms: [employer] (Nauruan) - Clinical Impression Clinical Impression: Bronchitis - Scribe Statement The provider has reviewed the documentation as recorded by the Scribe (José Antonio Andrea) All medical record entries made by the Scribe were at my direction and personally dictated by me. I have reviewed the chart and agree that the record accurately reflects my personal performance of the history, physical exam, medical decision making, and the department course for this patient. I have also personally directed, reviewed, and agree with the discharge instructions and disposition.
[2017-11-23] MEDS ORDERED: Albuterol-Ipratrop 3 mg / 0.5 (3 ml) UD ONE (21:26)
[2017-11-23] MEDS: Albuterol-Ipratrop 3 mg / 0.5 (3 ml) UD IH SCH (21:29)
[2017-11-23 22:46] VITALS: BP 122/76; PULSE 87; RESP 16; TEMP 99.3; O2SAT 96
--- NOTE | 2017-11-24 08:32 | RAD ---
HISTORY: COMPARISON: 10/16/2017. TECHNIQUE: Chest PA and lateral FINDINGS: LINES AND TUBES: None. LUNG AND PLEURA: The lungs are well inflated and clear. No pleural effusion or pneumothorax. HEART AND MEDIASTINUM: The heart is not enlarged. The hilar and mediastinal contours are within normal limits. SKELETAL STRUCTURES: The bony structures are within normal limits for the patient's age. VISUALIZED UPPER ABDOMEN: Normal. OTHER FINDINGS: None. IMPRESSION: No active pulmonary disease.
== END 2017-11-23 22:48 | disposition home or self-care (01) ==
LOC: C.ER 19:21 → SUPCPDRO 19:21 → C.ER 22:48
DX: J40 Bronchitis, not specified as acute or chronic (principal)